=== PATIENT | female | born 1970 | race African-American/Black ===

== ENCOUNTER 2017-07-23 06:45 | Inpatient (IN) | payer OTHER ==
[~2017-07-23] VITALS: Ht 180.3 cm; Wt 119.3 kg
[2017-07-23] MEDS ORDERED: SODIUM CHLORIDE 0.9% 1,000 ML IV ONE (09:05)
[2017-07-23] MEDS ORDERED: LORAZEPAM 2MG/ML CPJ IV ONE (09:15)
[2017-07-23] MEDS ORDERED: ONDANSETRON HCL 4MG/2ML VIAL IV ONE (09:15)
[2017-07-23 09:44] LABS: BASOPHILS % 0.4 % (0.0-2.0); HEMATOCRIT. 42.1 % (36.0-48.0); HEMOGLOBIN. 14.1 g/dL (12.0-16.0); LYMPHOCYTES % 14.6 % (20.0-50.0); MEAN CORPUSCULAR HEMOGLOBIN 30.4 pg (28.0-32.0); MEAN CORPUSCULAR VOLUME 91.1 fL (81.0-99.0); MEAN PLATELET VOLUME 8.4 fl (7.4-10.4); MONOCYTES % 3.4 % (2.0-8.0); NEUTROPHILS % 81.6 % (40.0-76.0); PLATELET 283 x1000/uL (130-400); RED BLOOD CELL COUNT 4.63 mill/uL (4.2-5.4); RED CELL DISTRIBUTION WIDTH 14.7 % (11.6-14.6)
[2017-07-23 10:01] LABS: CARBON DIOXIDE 27 mEq/L (21-32); CHLORIDE 102 mEq/L (98-107); CREATINE KINASE 231 IU/L (26-192); ETHANOL BLOOD < 10 mg/dL
[2017-07-23 10:05] LABS: CREATINE KINASE MB FRACTION 0.9 ng/mL (0.5-3.6)
[2017-07-23 10:22] LABS: CLARITY URINE CLOUDY (CLEAR); COLOR URINE DARK YELLOW (YELLOW); GLUCOSE URINE NEGATIVE (NEGATIVE); KETONES URINE 2+ (NEGATIVE); LEUKOCYTE ESTERASE URINE TRACE (NEGATIVE); NITRITE URINE NEGATIVE (NEGATIVE); OCCULT BLOOD URINE TRACE (NEGATIVE); PH URINE 5.5 (4.5-8.0); PROTEIN URINE 2+ (NEGATIVE); SPECIFIC GRAVITY URINE 1.031 (1.005-1.030)
[2017-07-23] MEDS ORDERED: POTASSIUM CHLORIDE 20MEQ TABLET SR PO ONE (10:45)
[2017-07-23 11:02] LABS: HCG SCREEN NEGATIVE
[2017-07-23 11:28] LABS: *AMPHETAMINES SCREEN URINE NEGATIVE (NEGATIVE); *BARBITURATES SCREEN URINE NEGATIVE (NEGATIVE); *COCAINE SCREEN URINE NEGATIVE (NEGATIVE); CANNABINOID URINE SCREEN NEGATIVE (NEGATIVE); METHADONE URINE SCREEN NEGATIVE (NEGATIVE); OPIATES URINE SCREEN NEGATIVE (NEGATIVE); PHENCYCLIDINE URINE SCREEN NEGATIVE (NEGATIVE)
[2017-07-23 11:30] LABS: *BENZODIAZEPINES SCREEN URINE PRESUMTIVE POSITIVE (NEGATIVE)
[2017-07-23] MEDS ORDERED: ACETAMINOPHEN 325MG TABLET PO PRN ×2 (12:00→13:45)
[2017-07-23] MEDS ORDERED: CLONIDINE 0.1MG TABLET PO PRN (13:45)
[2017-07-23] MEDS ORDERED: ONDANSETRON HCL 4MG/2ML VIAL IV PRN (13:45)
[2017-07-23] MEDS ORDERED: IPRATROPIUM/ALBUTEROL 0.5-3(2.5)MG/3ML NEB INH PRN (13:45)
[2017-07-23] MEDS ORDERED: MAGNESIUM/ALUMINUM HYDROXIDE/SIMETHICONE 30ML UDC PO PRN ×2 (13:45→18:00)
[2017-07-23 15:15] VITALS: BP 145/90
[2017-07-23 15:18] VITALS: BP 145/90
[2017-07-23] MEDS: SODIUM CHLORIDE 0.9% 1,000 ML IV SCH (16:39)
[2017-07-23 18:19] LABS: CARBON DIOXIDE 26 mEq/L (21-32); CHLORIDE 105 mEq/L (98-107); CREATINE KINASE 436 IU/L (26-192); TROPONIN I < 0.02 ng/mL (0.00-0.04)
[2017-07-23 18:22] LABS: CREATINE KINASE MB FRACTION 2.1 ng/mL (0.5-3.6)
[2017-07-23] MEDS ORDERED: DEXTROSE 50% WATER 50ML SYRINGE IV PRN (18:45)
[2017-07-23 20:00] VITALS: BP 142/99
[2017-07-23] MEDS: INSULIN LISPRO 100 UNITS/ML SUBCUT SCH (21:00)
[2017-07-23] MEDS: BLOOD SUGAR DIAGNOSTIC STRIP TEST SCH (21:38)
[2017-07-23] MEDS: ENOXAPARIN 30MG/0.3ML SYR SUBCUT SCH (21:38)
[2017-07-23] MEDS: LORAZEPAM 0.5MG TABLET PO PRN (22:15)
[2017-07-24] VITALS: BP 141/104
[2017-07-24 01:43] LABS: CREATINE KINASE 716 IU/L (26-192); CREATINE KINASE MB FRACTION 2.8 ng/mL (0.5-3.6); TROPONIN I < 0.02 ng/mL (0.00-0.04)
[2017-07-24] MEDS: SODIUM CHLORIDE 0.9% 1,000 ML IV SCH ×2 (02:05→17:19)
[2017-07-24 06:30] LABS: BASOPHILS % 0.6 % (0.0-2.0); EOSINOPHILS % 0.3 % (0.0-5.0); HEMATOCRIT. 41.5 % (36.0-48.0); HEMOGLOBIN. 13.5 g/dL (12.0-16.0); LYMPHOCYTES % 25.2 % (20.0-50.0); MEAN CORPUSCULAR HEMOGLOBIN 29.8 pg (28.0-32.0); MEAN CORPUSCULAR VOLUME 91.3 fL (81.0-99.0); MEAN PLATELET VOLUME 8.6 fl (7.4-10.4); MONOCYTES % 5.4 % (2.0-8.0); NEUTROPHILS % 68.5 % (40.0-76.0); PLATELET 264 x1000/uL (130-400); RED BLOOD CELL COUNT 4.55 mill/uL (4.2-5.4); RED CELL DISTRIBUTION WIDTH 14.8 % (11.6-14.6)
[2017-07-24] MEDS: BLOOD SUGAR DIAGNOSTIC STRIP TEST SCH ×4 (07:40→21:17)
[2017-07-24 08:00] VITALS: BP 151/99
[2017-07-24] MEDS: INSULIN LISPRO 100 UNITS/ML SUBCUT SCH ×4 (08:05→21:00)
[2017-07-24] MEDS: ENOXAPARIN 30MG/0.3ML SYR SUBCUT SCH ×2 (08:55→21:16)
[2017-07-24] MEDS: PANTOPRAZOLE SODIUM 40 MG/VIAL IV SCH (08:55)
[2017-07-24] MEDS: LORAZEPAM 0.5MG TABLET PO PRN ×3 (08:55→21:30)
[2017-07-24 12:00] VITALS: BP 135/95
[2017-07-24] MEDS ORDERED: HYDR25TA PO (13:37)
[2017-07-24] MEDS ORDERED: RANI150T12 PO (13:37)
[2017-07-24] MEDS ORDERED: LISI40TA4 PO (13:37)
[2017-07-24] MEDS ORDERED: POTASSIUM CHLORIDE 20MEQ/PACKET PO NR (15:00)
[2017-07-24] MEDS ORDERED: RANITIDINE HCL PO SCH (15:00)
[2017-07-24 16:00] VITALS: BP 149/68
[2017-07-24] MEDS: HYDROCHLOROTHIAZIDE 25MG TABLET PO SCH (17:19)
[2017-07-24] MEDS: LISINOPRIL 40MG TABLET PO SCH (17:19)
[2017-07-24 20:00] VITALS: BP 131/89
[2017-07-24] MEDS: FAMOTIDINE 20MG TABLET PO SCH (21:16)
[2017-07-24] MEDS: TRAZODONE HCL 100MG TABLET PO SCH (21:37)
[2017-07-25] MEDS: LORAZEPAM 0.5MG TABLET PO PRN ×2 (02:19→17:21)
[2017-07-25 04:00] VITALS: BP 151/93
[2017-07-25] MEDS: SODIUM CHLORIDE 0.9% 1,000 ML IV SCH ×2 (06:36→16:00)
[2017-07-25 07:09] LABS: HEMATOCRIT 38.9 % (36.0-48.0); HEMOGLOBIN 12.9 g/dL (12.0-16.0)
[2017-07-25] MEDS: INSULIN LISPRO 100 UNITS/ML SUBCUT SCH ×4 (07:20→21:00)
[2017-07-25] MEDS: BLOOD SUGAR DIAGNOSTIC STRIP TEST SCH ×4 (07:20→21:00)
[2017-07-25 08:00] VITALS: BP 151/88
[2017-07-25] MEDS: HYDROCHLOROTHIAZIDE 25MG TABLET PO SCH (09:07)
[2017-07-25] MEDS: FAMOTIDINE 20MG TABLET PO SCH ×2 (09:07→21:20)
[2017-07-25] MEDS: LISINOPRIL 40MG TABLET PO SCH (09:07)
[2017-07-25] MEDS: PANTOPRAZOLE SODIUM 40 MG/VIAL IV SCH (09:09)
[2017-07-25] MEDS: ENOXAPARIN 30MG/0.3ML SYR SUBCUT SCH ×2 (09:12→21:20)
[2017-07-25 12:00] VITALS: BP 130/90
[2017-07-25 16:00] VITALS: BP 165/102
[2017-07-25 18:04] LABS: T4 FREE 1.32 ng/dL (0.76-1.46)
[2017-07-25 20:00] VITALS: BP 142/94
[2017-07-25] MEDS: TRAZODONE HCL 100MG TABLET PO SCH (21:20)
[2017-07-26 00:05] VITALS: BP 136/89
[2017-07-26 04:00] VITALS: BP 148/88
[2017-07-26] MEDS: SODIUM CHLORIDE 0.9% 1,000 ML IV SCH (05:01)
[2017-07-26] MEDS: LORAZEPAM 0.5MG TABLET PO PRN ×2 (05:05→11:06)
[2017-07-26] MEDS: BLOOD SUGAR DIAGNOSTIC STRIP TEST SCH ×2 (07:40→11:53)
[2017-07-26 08:00] VITALS: BP 140/85
[2017-07-26] MEDS: INSULIN LISPRO 100 UNITS/ML SUBCUT SCH ×2 (08:10→11:53)
[2017-07-26] MEDS: ENOXAPARIN 30MG/0.3ML SYR SUBCUT SCH (08:43)
[2017-07-26] MEDS: HYDROCHLOROTHIAZIDE 25MG TABLET PO SCH (08:44)
[2017-07-26] MEDS: FAMOTIDINE 20MG TABLET PO SCH (08:44)
[2017-07-26] MEDS: LISINOPRIL 40MG TABLET PO SCH (08:44)
[2017-07-26 09:32] LABS: BASOPHILS % 0.6 % (0.0-2.0); EOSINOPHILS % 2.3 % (0.0-5.0); HEMOGLOBIN. 12.9 g/dL (12.0-16.0); LYMPHOCYTES % 33.2 % (20.0-50.0); MEAN CORPUSCULAR HEMOGLOBIN 31.1 pg (28.0-32.0); MEAN CORPUSCULAR VOLUME 91.8 fL (81.0-99.0); MEAN PLATELET VOLUME 8.3 fl (7.4-10.4); MONOCYTES % 5.4 % (2.0-8.0); NEUTROPHILS % 58.5 % (40.0-76.0); PLATELET 239 x1000/uL (130-400); RED BLOOD CELL COUNT 4.14 mill/uL (4.2-5.4); RED CELL DISTRIBUTION WIDTH 14.7 % (11.6-14.6)
[2017-07-26 09:52] LABS: CARBON DIOXIDE 28 mEq/L (21-32); CHLORIDE 106 mEq/L (98-107)
[2017-07-26 12:00] VITALS: BP 153/84
[2017-07-26] MEDS ORDERED: POTASSIUM CHLORIDE 20MEQ TABLET SR PO NR (12:00)
[2017-07-26 12:30] VITALS: BP 153/84
[2017-07-27] MEDS ORDERED: TRAZ-132 PO (23:42)
== END 2017-07-26 13:20 | disposition home or self-care (01) | DRG 249 ==
LOC: ER 08:58 → EDBEDREQTM 11:59 → EDBEDREQ 11:59 → 7WST 13:57 → ENRESERV 13:57
PROVIDERS: ADMIT Internal Medicine; ATTEND Internal Medicine
DX: A08.4 Viral intestinal infection, unspecified (principal); I11.9 Hypertensive heart disease without heart failure; E11.9 Type 2 diabetes mellitus without complications; E87.6 Hypokalemia; F32.9 Major depressive disorder, single episode, unspecified; K21.9 Gastro-esophageal reflux disease without esophagitis; R25.1 Tremor, unspecified; I49.3 Ventricular premature depolarization; F43.22 Adjustment disorder with anxiety; F17.210 Nicotine dependence, cigarettes, uncomplicated; Z79.899 Other long term (current) drug therapy; Z88.0 Allergy status to penicillin; K62.5 Hemorrhage of anus and rectum
CPT/HCPCS: 36415; 70450; 70551; 71010; 74000; 80048; 80053; 80061; 80305; 80307; 80329; 81001; 82270; 82310; 82390; 82550; 82553; 82962; 83690; 83735; 84439; 84443; 84481; 84484; 84703; 85014; 85018; 85025; 87015; 87045; 87427; 87449; 87493; 89055; 93005; 93970; 96374; 99285; C1893; C9113; G0482; J1650; J2405; J7030